=== PATIENT | male | born 1970 | race Caucasian/White ===

== ENCOUNTER 2025-03-27 21:24 | Emergency (ER) | payer OTHER, SELFPAY ==
[2025-03-27 21:27] VITALS: BP 124/74; PULSE 72; RESP 16; TEMP 37; O2SAT 94; BMI 27.3
--- NOTE | 2025-03-27 21:32 | ED_ITS ---
<Statement entered by Nelly Taylor DO - 03/28/25 00:42> I was consulted by the ELIDIA, and we discussed the complexity of problems being addressed. I approve the treatment and management plan for this patient's care in the emergency department, thus performing a substantial portion of the medical decision making. Nelly Taylor DO Discharge Plan Disposition Patient Disposition: Home, Self-Care Condition: Good Referrals Follow up/Referrals: Provider,Referral, MD [Primary Care Provider, Medical] - See instructions Activity Restrictions/Add. Instructions Additional Instructions/Restrictions: Return to the ER if needed. Clinical Impressions Clinical Impression: Fatigue Print Language Print Language: Kittitian Discharge ED Provider: Nelly Taylor General Adult HPI <Jen Allen APRN - Last Filed: 03/27/25 21:43> General Chief complaint: Dizziness Stated complaint: Dizziness Time Seen by Provider: 03/27/25 21:32 Mode of Arrival: EMS Source of Information: Patient and EMS Description of Symptoms (Recalled from ER Triage Doc. by RN): Pt presents via EMS with c/o dizziness that began today while standing. No falls, no LOC. Reports chills earlier in the day with no temp check. Pt denies N/V or any other associated smyptoms. History of Present Illness HPI narrative: patient is a 54-year-old male PMHx anxiety (sertraline) who presents to the ED via EMS for dizziness. Patient states he was standing in his camper when he suddenly felt dizzy, decided to lie down, states his dizziness went away. He states that earlier today he had a mild headache, the headache went away on its own. He denies any additional complaints. Denies any recent falls or trauma. Denies any additional medications. 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 Related Data Allergies Allergy/AdvReac Type Severity Reaction Status Date / Time No Known Allergies Allergy Verified 03/27/25 21:31 PFSH <Jen Allen APRN - Last Filed: 03/27/25 21:43> PFS Disclaimer: The information contained in this section may have been updated after the patient was seen, as this information can be updated by other users. Social History (Updated 03/27/25 @ 21:43 by Jen Allen APRN) Smoking Status: Current every day smoker alcohol intake: former current occupational status: employed Travel in the last 8 weeks?: None Have you lived/traveled outside [place] in past 30 days?: No Contact w/someone who lives/traveled outside [place] past 30 days?: No Exposure to someone with infectious disease in past 14 days?: No Do you have a fever (greater than 100.4 F or 38 C)?: No Have you tested positive for COVID-19?: No Exposed to someone with COVID-19 in past 14 days?: No Do you have a sore throat?: No Do you have a cough?: No Do you have any weakness?: No Do you have any diarrhea?: No Are you experiencing any unusual bleeding?: No Do you have any muscle aches/pain?: No Do you have any abdominal pain?: No Are you experiencing loss of taste or smell?: No <Jen Allen APRN - Last Filed: 03/27/25 21:43> ROS Obtained: Yes Systems reviewed as appropriate & no additional complaints except as documented Physical Exam <Jen Allen APRN - Last Filed: 03/27/25 21:43> General General appearance: alert Head Head exam: atraumatic Eye Eye exam: Present PERRL and EOMI; Absent nystagmus Respiratory Respiratory exam: Present normal lung sounds bilaterally Cardiovascular Cardiovascular exam: Present regular rate Abdominal Exam Abdominal exam: Present soft Back Exam Back exam: Present full ROM Neurological Exam Neurological exam: Present alert Skin Skin exam: Present warm and dry Medical Decision Making <Jen Allen APRN - Last Filed: 03/27/25 21:43> Medical Records Screening: Per USPSTF and CDC recommendations, given the prevalence of disease in our region, it is our hospital?s policy to screen for HIV and viral Hepatitis for all patients aged 18 and over and those with ongoing risk factors. Kalyan Inquiry Pt receiving controlled substance: No Vital Signs: 03/27/25 21:27 03/28/25 00:32 Temperature 98.6 F 98.7 F Temperature Source Temporal Artery Scan Oral Pulse Rate 68 Pulse Rate [Radial] 72 Respiratory Rate 16 14 Blood Pressure 116/76 Blood Pressure [Right Arm] 124/74 Blood Pressure Mean [Right Arm] 90 Blood Pressure Position Sitting Blood Pressure Position [Right Arm] Sitting 02 Sat by Pulse Oximetry 94 L Oxygen Delivery Method Room Air Room Air Lab Data Lab Results 03/27/25 22:13: WBC 16.7 H, RBC 4.04 L, Hgb 12.2 L, Hct 35.6 L, MCV 88.1, MCH 30.2, MCHC 34.3, RDW 13.4, Plt Count 206, MPV 8.7, Neut % (Auto) 81.0 H, Lymph % (Auto) 12.8, Boyle % (Auto) 3.5, Eos % (Auto) 2.0, Baso % (Auto) 0.2, Neut # (Auto) 13.5 H, Lymph # (Auto) 2.1, Boyle # (Auto) 0.6, Eos # (Auto) 0.3, Baso # (Auto) 0.0, Sodium 138, Potassium 3.9, Chloride 108 H, Carbon Dioxide 25, Anion Gap 8.9, BUN 15, Creatinine 0.90, Estimated Creat Clear 107, Estimated GFR 88, Est GFR ( Amer) 106, Glucose 103 H, Calcium 8.1 L, Total Bilirubin 0.5, AST 24, ALT 17, Alkaline Phosphatase 116, Total Protein 5.9 L, Albumin 3.5, Globulin 2.4, Albumin/Globulin Ratio 1.5, Plasma/Serum Alcohol < 10 03/28/25 00:07: Urine Color Yellow, Urine Appearance Clear, Urine pH 6.5, Ur Specific [place] 1.015, Urine Protein Negative, Urine Glucose (UA) Negative, Urine Ketones Negative, Urine Blood Negative, Urine Nitrate Negative, Urine Bilirubin Negative, Urine Urobilinogen 0.2, Ur Leukocyte Esterase Negative, Urine Opiates Screen Negative, Urine Methadone Screen Negative, Ur Barbituates Screen Negative, Ur Phencyclidine Scrn Negative, Ur Amphetamines Screen Negative, U Benzodiazepines Scrn Negative, Urine Cocaine Screen Negative, U Marijuana (THC) Screen Negative 03/27/25 22:13 03/27/25 22:13 Orders (Tests/Meds): ORDERS Category Date Time Status CBC w/Auto Diff [Complete Blood Count Auto Diff] Stat Lab 03/27/25 22:13 Completed CMP [Comprehensive Metabolic Panel] Stat Lab 03/27/25 22:13 Completed Ethyl Alcohol Stat Lab 03/27/25 22:13 Completed UDS [Drug Screen,Urine] Stat Lab 03/28/25 00:07 Completed Urinalysis and Microscopic Stat Lab 03/28/25 00:07 Results 12-lead EKG Request [ECG Request] Stat Y 03/27/25 21:35 Completed Medical Decision Narrative: In summary, patient is a 54-year-old male PMHx anxiety (sertraline) who presents to the ED via EMS for dizziness. Patient states he was standing in his camper when he suddenly felt dizzy, decided to lie down, states his dizziness went away. He states that earlier today he had a mild headache, the headache went away on its own. He denies any additional complaints. Denies any recent falls or trauma. Denies any additional medications. 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 He denies drug use. Upon initial evaluation, it appears patient is having trouble staying awake, slurring his words. PERRLA, no nystagmus. Patient states that he is just tired. He denies fever, headache, visual disturbances, posterior neck pain, chest pain, shortness of breath, abdominal pain, back pain. 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 Differential diagnosis include infectious process, electrolyte imbalance, dehydration, encephalopathy, intoxicated, among others. Labs and urinalysis ordered. Care transferred to attending, Dr. Taylor. <Nelly Taylor, DO - Last Filed: 03/28/25 00:42> Vital Signs: 03/27/25 21:27 03/28/25 00:32 Temperature 98.6 F 98.7 F Temperature Source Temporal Artery Scan Oral Pulse Rate 68 Pulse Rate [Radial] 72 Respiratory Rate 16 14 Blood Pressure 116/76 Blood Pressure [Right Arm] 124/74 Blood Pressure Mean [Right Arm] 90 Blood Pressure Position Sitting Blood Pressure Position [Right Arm] Sitting 02 Sat by Pulse Oximetry 94 L Oxygen Delivery Method Room Air Room Air Lab Data Lab Results 03/27/25 22:13: WBC 16.7 H, RBC 4.04 L, Hgb 12.2 L, Hct 35.6 L, MCV 88.1, MCH 30.2, MCHC 34.3, RDW 13.4, Plt Count 206, MPV 8.7, Neut % (Auto) 81.0 H, Lymph % (Auto) 12.8, Boyle % (Auto) 3.5, Eos % (Auto) 2.0, Baso % (Auto) 0.2, Neut # (Auto) 13.5 H, Lymph # (Auto) 2.1, Boyle # (Auto) 0.6, Eos # (Auto) 0.3, Baso # (Auto) 0.0, Sodium 138, Potassium 3.9, Chloride 108 H, Carbon Dioxide 25, Anion Gap 8.9, BUN 15, Creatinine 0.90, Estimated Creat Clear 107, Estimated GFR 88, Est GFR ( Amer) 106, Glucose 103 H, Calcium 8.1 L, Total Bilirubin 0.5, AST 24, ALT 17, Alkaline Phosphatase 116, Total Protein 5.9 L, Albumin 3.5, Globulin 2.4, Albumin/Globulin Ratio 1.5, Plasma/Serum Alcohol < 10 03/28/25 00:07: Urine Color Yellow, Urine Appearance Clear, Urine pH 6.5, Ur Specific [place] 1.015, Urine Protein Negative, Urine Glucose (UA) Negative, Urine Ketones Negative, Urine Blood Negative, Urine Nitrate Negative, Urine Bilirubin Negative, Urine Urobilinogen 0.2, Ur Leukocyte Esterase Negative, Urine Opiates Screen Negative, Urine Methadone Screen Negative, Ur Barbituates Screen Negative, Ur Phencyclidine Scrn Negative, Ur Amphetamines Screen Negative, U Benzodiazepines Scrn Negative, Urine Cocaine Screen Negative, U Marijuana (THC) Screen Negative Orders (Tests/Meds): ORDERS Category Date Time Status CBC w/Auto Diff [Complete Blood Count Auto Diff] Stat Lab 03/27/25 22:13 Completed CMP [Comprehensive Metabolic Panel] Stat Lab 03/27/25 22:13 Completed Ethyl Alcohol Stat Lab 03/27/25 22:13 Completed UDS [Drug Screen,Urine] Stat Lab 03/28/25 00:07 Completed Urinalysis and Microscopic Stat Lab 03/28/25 00:07 Results 12-lead EKG Request [ECG Request] Stat Y 03/27/25 21:35 Completed Medical Decision Narrative: In summary, patient is a 54-year-old male PMHx anxiety (sertraline) who presents to the ED via EMS for dizziness. Patient states he was standing in his camper when he suddenly felt dizzy, decided to lie down, states his dizziness went away. He states that earlier today he had a mild headache, the headache went away on its own. He denies any additional complaints. Denies any recent falls or trauma. Denies any additional medications. 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 He denies drug use. Upon initial evaluation, it appears patient is having trouble staying awake, neuro exam otherwise unremarkable. PERRLA, no nystagmus. Patient states that he is just tired. He denies fever, headache, visual disturbances, posterior neck pain, chest pain, shortness of breath, abdominal pain, back pain. 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 Differential diagnosis include infectious process, electrolyte imbalance, dehydration, encephalopathy, intoxicated, among others. Labs and urinalysis ordered. Care transferred to attending, Dr. Taylor. Nelly Taylor, DO I assumed care of the patient at 2200. EKG was reviewed and interpreted by myself: Normal sinus rhythm without acute ST or T wave changes concerning for ischemia Patient's labs were reviewed and interpreted by myself: CBC showed mild leukocytosis of 16, CMP was unremarkable. UA showed no evidence of infection. Urine drug screen was negative. Alcohol level was normal. On further questioning, patient states that he recently had a diarrheal illness over the last few days, patient has had multiple episodes of diarrhea but no vomiting. Patient had nausea. states that she has started to develop similar symptoms. Patient states that he feels significantly improved in the emergency department after not being for a couple hours. At this time, given patient's otherwise unremarkable workup I felt the patient was appropriate for discharge home. Precautions were discussed and patient was discharged home in stable condition. Critical Care <Jen Allen APRN - Last Filed: 03/27/25 21:43> Critical Care Time Critical Care Time: No
--- NOTE | 2025-03-27 21:35 | ECG_ITS ---
APPROVED REPORT Exam: Resting ECG HR:66 bpm ECG Measurements Heart Rate 66 AXES [place] 159 P 55 QRSd 89 QRS 79 QT 388 T 46 QTc 402 Conclusion SINUS RHYTHM NORMAL ECG UNCONFIRMED REPORT Electronically signed by : JEFF MCMAHAN, 03/29/2025 23:04:39
--- NOTE | 2025-03-27 22:16 | PC.NURSE ---
bhavna collected and sent to the lab at this time
[2025-03-27 22:20] LABS: Hematocrit 35.6 % (42.0-52.0); Hemoglobin 12.2 g/dL (14.1-18.0); Immature Granulocytes % 0.5 %; Mean Corpuscular HGB Conc 34.3 g/dL (31.8-35.4); Mean Corpuscular Hemoglobin 30.2 pg (27.0-31.2); Mean Corpuscular Volume 88.1 fl (80-94); Nucleated Red Blood Cells % 0 %; Platelet Count 206 K/mm3 (142-424); Red Blood Count 4.04 M/mm3 (4.60-6.20); Red Cell Distribution Width-SD 43.6 fL; White Blood Count 16.7 K/mm3 (4.8-10.8)
[2025-03-27 22:32] LABS: Alanine Aminotransferase 17 U/L (12-78); Albumin Level 3.5 g/dl (3.5-5.0); Albumin/Globulin Ratio 1.5 (1.1-1.8); Alkaline Phosphatase 116 U/L (38-126); Anion Gap 8.9 mEq/L (5-15); Aspartate Amino Transferase 24 U/L (17-59); Bilirubin,Total 0.5 mg/dl (0.2-1.3); Blood Urea Nitrogen 15 mg/dl (9-20); Calcium 8.1 mg/dl (8.4-10.2); Carbon Dioxide 25 mmol/L (22.0-30.0); Chloride 108 mmol/L (98-107); Creatinine Clearance Estimated 107 mL/min (50-200); Creatinine,Serum 0.90 mg/dl (0.66-1.25); Estimated Glomerular Filt Rate 88 ml/min (>60); GFR (African American) 106 ML/MIN (>60); Globulin 2.4 g/dL (1.3-3.2); Glucose 103 mg/dl (74-100); Potassium 3.9 mmoL/L (3.5-5.1); Sodium 138 mmol/L (136-145); Total Protein,Serum 5.9 g/dl (6.3-8.2)
--- NOTE | 2025-03-28 00:06 | PC.NURSE ---
Pt ambulates with slow steady gait to restroom to attempt to obtain urine sample.
[2025-03-28 00:17] LABS: Microscopic, Urine URINE MICROSCOPIC (MICROSCOPIC)
[2025-03-28 00:20] LABS: Bilirubin,Urine Negative (Negative); Color,Urine YELLOW (Yellow); Glucose,Urine (UA) Negative (Negative); Ketones,Urine Negative (Negative); Leukocyte Esterase,Urine Negative (Negative); PH,Urine 6.5 (5.0-8.5); Protein,Urine Negative (Negative); Specific Gravity, Urine 1.015 (1.005-1.030); Urobilinogen,Urine 0.2 EU/dl (0.2)
[2025-03-28 00:32] VITALS: BP 116/76; PULSE 68; RESP 14; TEMP 37.1; O2SAT 100
[2025-03-28 00:32] LABS: Amphetamine/Metha Screen,Urine Negative ng/ml (<1000)
[2025-03-28 00:33] LABS: Barbiturates Screen,Urine Negative ng/ml (<200); Benzodiazepines Screen,Urine Negative ng/ml (<200)
[2025-03-28 00:35] LABS: Methadone Screen,Urine Negative ng/ml (<300)
[2025-03-28 00:36] LABS: Opiate Screen,Urine Negative ng/ml (<300)
[2025-03-28 00:37] LABS: Phencyclidine Screen,Urine Negative ng/ml (<25)
[2025-03-28 00:39] LABS: RBC,Urine Occasional #/hpf (0-3); Squamous Epithelial Cell,Urine Occasional #/hpf (0-5)
== END 2025-03-28 00:33 | disposition home or self-care (01) ==
PROVIDERS: Nurse Practitioner; Emergency Provider Student in an Organized Health Care Education/Training Program
DX: R53.83 Other fatigue (principal); R42 Dizziness and giddiness; R19.7 Diarrhea, unspecified; F17.210 Nicotine dependence, cigarettes, uncomplicated
CPT/HCPCS: 80053; 80307; 80320; 81001; 85025; 93005; 99283